=== PATIENT | female | born 1950 | race Caucasian/White ===

== ENCOUNTER → 2016-09-03 | Outpatient (CLI) | payer MEDICARE, OTHER ==
[~2016-09-03] MED LIST: ADVAIR 100-501 EAC1 IH; ADVAIR 250-501 EAC1 IH; ADVAIR 250-501 EACH IH; ALAVERT10 M1 PO; ALBUTEROL17 GM INH; BENTYL20 MG DOB; CALCIUM + D 6001 TA1 PO; CLARITIN10 M1 PO; CLARITIN10 M3 PO; ENALAPRIL MALEA20 MG PO; FLEXERIL PO; FLEXERIL10 M1 PO; FLONASE 0.05% N16 G1; HCTZ PO; HYDROCHLOROTHIA25 MG PO; HYDROCODON-ACE1 EAC5 PO; HYDROCODONE/APA1 T16 PO; INDERAL20 MG PO; LINZESS PO; LINZESS290 MCG PO; MIRALAX17 G1 PO; NAPROSYN-EC500 M1 PO; NEURONTIN100 MG PO; NEXIUM PO; OMEPRAZOLE20 M2 PO; OMEPRAZOLE40 M1 PO; OXYCODONE HCL10 MG PO; PREDNISONE PO; PRILOSEC40 MG PO; PROAIR HFA8.5 GM IH; PROPRANOLOL HCL20 MG PO; SPIRIVA18 MCG INH; TOPAMAX PO; VASOTEC20 MG PO; VIBRAMYCIN100 M1 PO
[2016-09-03 12:31] LABS: BASOPHIL# 0.1 X10e3 (0-0.3); BASOPHIL% 0.7 % (0-2.5); EOSINOPHIL# 0.1 X10e3 (0-0.7); EOSINOPHIL% 0.6 % (0.0-7.0); HEMATOCRIT 37.1 % (35.0-45.0); HEMOGLOBIN 12.1 gm/dL (12.0-16.0); LYMPHOCYTE# 2.2 X10e3 (1.0-3.5); LYMPHOCYTE% 18.3 % (17.0-45.0); MEAN CELL VOLUME 82.2 FL (83-96); MEAN CORPUSCULAR HEMOGLOBIN 26.9 PG (28-34); MEAN CORPUSCULAR HGB CONC 32.7 g/dL (30-36); MEAN PLATELET VOLUME 7.7 FL (6.5-11.5); MONOCYTE% 8.9 % (3.0-12.0); NEUTROPHIL# 8.4 X10e3 (1.5-7.1); NEUTROPHIL% 71.5 % (40-75); PLATELET COUNT 389 X10e3 (140-420); RED BLOOD COUNT 4.51 X10e (3.90-5.30); WHITE BLOOD COUNT 11.8 X10e3 (4.0-10.5)
[2016-09-03 12:34] LABS: DIFF IND NO
[2016-09-03 13:16] LABS: ALBUMIN SERUM 3.2 g/dL (3.5-5.0); BILIRUBIN,TOTAL 0.6 mg/dL (0.2-2.0); BUN/CREATININE RATIO 13.75; CALCIUM SERUM 9.1 mg/dL (8.4-10.2); CREATININE SERUM 0.8 mg/dL (0.6-1.4); GLOM FILT RATE Estimated 77.4 mL/min (>60); PROTEIN TOTAL SERUM 6.3 g/dL (6.0-8.3)
[2016-09-03 13:23] LABS: THYROID STIMULATING HORMONE 0.89 uIU/ml (0.34-5.60)
[2016-09-03 13:30] LABS: FREE THYROXIN (T4) 0.99 ng/dL (0.58-1.64)
== END | disposition home or self-care (01) ==
LOC: CLAB 11:58
PROVIDERS: Family Medicine
DX: R10.10 Upper abdominal pain, unspecified (principal); E78.5 Hyperlipidemia, unspecified
CPT/HCPCS: 36415; 80053; 80061; 82150; 83690; 84439; 84443; 85025

== ENCOUNTER 2016-11-06 08:24 | Emergency (ER) | payer MEDICARE, OTHER ==
--- NOTE | ~2016-11-06 | EKG ---
PATIENT: JUANA MALDONADO UNIT #: [id number] Ventricular Rate: 105 BPM Atrial Rate: 105 BPM P-R Interval: 156 ms QRS Duration: 70 ms Q-T Interval: 360 ms QTC Calculation(Bezet): 475 ms P [place]: 68 degrees Calculated R [place]: 57 degrees Calculated T [place]: 84 degrees Diagnosis Line: Sinus tachycardia Diagnosis Line: Anteroseptal infarct , acute Diagnosis Line: Lateral injury pattern Diagnosis Line: ACUTE [place] / STEMI Diagnosis Line: Abnormal ECG Diagnosis Line: When compared with ECG of 08-FEB-2015 07:06, Diagnosis Line: Significant changes have occurred Diagnosis Line: Confirmed by SURENDRA DENTON, KRISTAN ([id number]) on Diagnosis Line: 11/06/2016 4:18:23 PM INTERPRETING MD: [id number]
[2016-11-06 09:10] LABS: POC - CKMB 15.4 ng/mL (0.0-7.9); POC - TROPONIN 1.26 ng/mL (<=0.05)
[2016-11-06 09:27] LABS: BASOPHIL% 0.1 % (0-2.5); HEMATOCRIT 44.4 % (35.0-45.0); HEMOGLOBIN 14.4 gm/dL (12.0-16.0); LYMPHOCYTE# 2.3 X10e3 (1.0-3.5); LYMPHOCYTE% 8.4 % (17.0-45.0); MEAN CORPUSCULAR HEMOGLOBIN 25.6 PG (28-34); MEAN CORPUSCULAR HGB CONC 32.4 g/dL (30-36); MONOCYTE# 1.3 X10e3 (0-1.0); MONOCYTE% 4.7 % (3.0-12.0); NEUTROPHIL# 23.6 X10e3 (1.5-7.1); NEUTROPHIL% 86.8 % (40-75); PLATELET COUNT 514 X10e3 (140-420); RED BLOOD COUNT 5.62 X10e (3.90-5.30); RED CELL DISTRIBUTION WIDTH 16.1 % (11.0-15.5); WHITE BLOOD COUNT 27.1 X10e3 (4.0-10.5)
[2016-11-06 09:28] LABS: DIFF IND YES
[2016-11-06 09:54] LABS: BUN/CREATININE RATIO 35.71; CALCIUM SERUM 8.2 mg/dL (8.4-10.2); CREATININE SERUM 1.4 mg/dL (0.6-1.4); GLOM FILT RATE Estimated 39.3 mL/min (>60); POTASSIUM 3.1 mmol/L (3.5-5.1)
[2016-11-06 10:13] LABS: ANISOCYTOSIS SL; PLATELET ESTIMATE INCREASED (NORMAL)
== END 2016-11-06 09:15 | disposition short-term general hospital (02) ==
LOC: CED 08:24 → CFTX 08:50 → CED 09:15
PROVIDERS: Emergency Medicine
DX: I21.3 ST elevation (STEMI) myocardial infarction of unspecified site (principal); E78.5 Hyperlipidemia, unspecified; I10 Essential (primary) hypertension; J44.9 Chronic obstructive pulmonary disease, unspecified; F17.200 Nicotine dependence, unspecified, uncomplicated; E11.9 Type 2 diabetes mellitus without complications; I25.2 Old myocardial infarction
CPT/HCPCS: 36415; 80048; 82553; 84484; 85025; 93005; 96374; 99291; J1644; J2270